=== PATIENT | female | born 1995 | race Caucasian/White ===

== ENCOUNTER 2023-09-06 05:53 | Inpatient (IN) ==
[2023-09-06] MEDS ORDERED: OXYTOCIN 30 UNITS/NSS 30 UNITS/500 ML BAG IV PRN ×2 (06:40→18:55)
[2023-09-06 07:15] LABS: Hemoglobin 13.1 g/dl (12.0-16.0); Mean Corpuscular Hemoglobin 28.2 pg (25.0-34.0); Mean Corpuscular Hgb Conc 33.6 g/dL (32.0-36.0); Mean Corpuscular Volume 83.9 fL (80.0-100.0); Mean Platelet Volume 11.8 fL (9.4-12.4); Platelet Count 218 K/uL (130-400); RDW Coefficient of Variation 13.1 % (11.5-14.5); RDW Standard Deviation 39.7 fL (36.4-46.3); Red Blood Count 4.65 M/uL (4.20-5.40); White Blood Count 12.38 K/ul (4.8-10.8)
[2023-09-06] MEDS: ONDANSETRON INJ 2 MG/ML 2 ML VIAL IV PRN (07:20)
--- NOTE | 2023-09-06 07:41 | History & Physical Report ---
Date of Service September 06, 2023 Assessment & Plan (1) Supervision of normal first : Plan: Admit to L&D. EFM/toco, labs, IV access. She'd prefer to labor as naturally as possible. Admission and Anticipated Discharge Date Admission Date: September 06, 2023 History of Present Illness Chief Complaint: labor Primary Care Provider: Mary Archuleta PA-C 27yo @ 40 2, presented in spontanous labor. No leaking. + movement. Hypothyroidism, took synthroid this morning. Had low-lying placenta, resolved. Allergies Allergy/AdvReac Type Severity Reaction Status Date / Time No Known Drug Allergies Allergy nkda Verified 09/06/23 06:11 Home Medications Medication Instructions Recorded Confirmed Type prenat.vits,frederic,bdc-gsfq-ejlgn 1 tab PO DAILY 07/15/22 09/06/23 History levothyroxine 88 mcg tablet 88 mcg PO DAILY #90 tabs 04/16/23 09/06/23 Rx Patient History Medical History Varicella vaccination History of chicken pox Surgical History S/P wisdom tooth extraction Family History Mother Thyroid disease Father Hypertension Denies family history of Ovarian cancer Breast cancer Colorectal cancer Social History Smoking Status: Never smoker Do You Dip or Chew Tobacco: No; Hx Alcohol Use: No Hx Substance Use: No Preferred Language: Armenian Survey Field Technician Required: No Beliefs That Will Affect Care: Adventist Adventist Beliefs: jainism marital status: marital status details: Tushar Escobar (29) [phone] Current Living Situation: Spouse Current Living Situation Comment: lives with spouse, dogs current occupational status: employed current occupation: [employer] Other Information That Helps Us Care for You: No Assistive Devices: None Review of Systems All systems reviewed & are unremarkable except as noted in HPI & below Physical Exam Physical Exam: 4cm per RN check on arrival. FHT Cat 1 Constitutional: WD/WN, vitals as above Respiratory: normal respiratory effort, lungs clear to auscultation no respiratory distress Cardiovascular: Rate/Rhythm: regular rate and regular rhythm Gastrointestinal (Abdomen): Inspection/Auscultation: abdomen normal to inspection Percussion/Palpation: abdomen soft; abdomen nontender Gravid. No s/s chorio or abruption. Skin: no rashes, warm and dry Psychiatric: A+Ox3, euthymic affect Results & Data Vital Signs (Past 12 Hours) Vital Signs Temp Pulse Resp BP 09/06/23 06:22 73 142/95 H 09/06/23 06:21 68 143/92 H 09/06/23 06:12 36.8 C 20 09/06/23 06:10 84 146/96 H Coding Level of Care Code None Diagnoses Supervision of normal first Z34.00
[2023-09-06] MEDS: LACTATED RINGER'S 1,000 ML IV PRN (08:42)
--- NOTE | 2023-09-06 08:45 | Anesthesiology Consultation ---
Date of Service September 06, 2023 Assessment & Plan Chart Review Chart Review: Acceptable Risk for Labor Epidural History Height/Weight Height: 5 ft 5 in Weight: 90.265 kg Allergies Allergy/AdvReac Type Severity Reaction Status Date / Time No Known Drug Allergies Allergy nkda Verified 09/06/23 06:11 Medications Home Medications Medication Instructions Recorded Confirmed Last Taken prenat.vits,freedric,kip-olii-xndec 1 tab PO DAILY 07/15/22 09/06/23 09/06/23 levothyroxine 88 mcg tablet 88 mcg PO DAILY #90 tabs 04/16/23 09/06/23 09/06/23 Active Medications Generic Name Dose Route Start Last Admin Trade Name Freq PRN Reason Stop Dose Admin Lactated Ringer's 1,000 mls @ 125 mls/hr 09/06/23 06:40 09/06/23 08:42 Lr IV 09/08/23 06:39 999 mls/hr .Q8H PRN Administration L&D Protocol Protocol Ondansetron HCl 4 mg 09/06/23 06:43 09/06/23 07:20 Ondansetron Inj 2 Mg/Ml 2 Ml Vial IV 10/06/23 06:42 4 mg Q6H PRN Administration Nausea And Vomiting Past Medical History Medical History Varicella vaccination History of chicken pox Past Family History Family History Mother Thyroid disease Father Hypertension Denies family history of Ovarian cancer Breast cancer Colorectal cancer Past Surgical History Surgical History S/P wisdom tooth extraction Social History Smoking Status: Never smoker Do You Dip or Chew Tobacco: No Hx Alcohol Use: No Hx Substance Use: No substance use type: does not use Physical Exam Vital Signs Last Vital Signs Temp 36.8 C 09/06/23 06:12 Pulse 73 09/06/23 06:22 Resp 20 09/06/23 06:12 BP 142/95 H 09/06/23 06:22 Testing Laboratory Results 09/06/23 06:57
[2023-09-06] MEDS: BUPIVACAINE 0.25% PF 30 ML VIAL ONE (09:10)
[2023-09-06] MEDS: fentaNYL citrate PF 100 MCG/2 ML VIAL ONE (09:10)
[2023-09-06] MEDS: LIDOCAINE 2%/EPINEPHRINE 1:200,000 20 ML PF ONE (09:12)
[2023-09-06] MEDS: fentANYL 2 MCG/ML BUPIVacaine 0.125%-NSS 100ML BAG ONE (09:13)
[2023-09-06] MEDS ORDERED: fentaNYL citrate PF 100 MCG/2 ML VIAL EPI PRN (09:20)
[2023-09-06] MEDS ORDERED: NALOXONE HCL 0.4 MG/1 ML VIAL/CARP IV PRN (09:20)
[2023-09-06] MEDS ORDERED: BUPIVACAINE 0.25% PF 30 ML VIAL EPI PRN (09:20)
[2023-09-06] MEDS ORDERED: SODIUM CHLORIDE 0.9% PF INJ 10 ML VIAL EPI PRN (09:20)
[2023-09-06] MEDS ORDERED: NALOXONE HCL 1 MG in SODIUM CHLORIDE 0.9% 1,000 ML IV PRN (09:20)
[2023-09-06] MEDS ORDERED: LIDOCAINE 2% MPF LOCAL 5 ML VIAL EPI PRN (09:20)
[2023-09-06] MEDS ORDERED: ONDANSETRON INJ 2 MG/ML 2 ML VIAL IV PRN (09:20)
[2023-09-06] MEDS ORDERED: ROPIVACAINE 0.5% PF 5 MG/ML 20 ML VIAL EPI PRN (09:20)
[2023-09-06] MEDS ORDERED: ePHEDrine sulfate 50 MG/ML AMP IV PRN (09:20)
--- NOTE | 2023-09-06 10:10 | Labor Progress Brief Note ---
Date of Service September 06, 2023 Subjective comfortable w/ epidural Assessment & Plan (1) : Plan: 27 yo G1 at 40 2/7 wga admitted in labor VSS Fetus cat 1 Labor - had discussed arom w/ pt and she was amenable, on exam no bag palpated. Pt thinks had a gush during epidural so suspect rom at that point. Progress noted, continue expectant management GBS neg epidural in place Admission and Anticipated Discharge Date Admission Date: September 06, 2023 Physical Exam Genitourinary: Manual OB Exam: + cervical dilation 5 cm, + cervical effacement 60% and + station -2 OB Exam Monitor Tracing: + external FHT monitor used, + external uterine monitor used (q4-5) and + category I planned arom, no bag noted Results & Data Vital Signs (Past 12 Hours) Vital Signs Temp Pulse Resp BP Pulse Ox 09/06/23 10:03 71 99 09/06/23 09:58 77 123/69 97 09/06/23 09:53 75 97 09/06/23 09:48 73 119/67 96 09/06/23 09:43 74 96 09/06/23 09:38 75 98 09/06/23 09:37 74 134/69 09/06/23 09:34 77 147/76 H 09/06/23 09:33 80 98 09/06/23 09:28 78 126/60 97 09/06/23 09:23 84 97 09/06/23 09:21 76 127/69 09/06/23 09:19 81 126/71 09/06/23 09:18 74 98 09/06/23 09:17 73 126/68 09/06/23 09:15 74 125/69 09/06/23 09:13 98 09/06/23 09:13 73 09/06/23 09:13 71 123/59 L 09/06/23 09:11 86 124/80 09/06/23 09:09 78 126/78 09/06/23 09:08 79 97 09/06/23 09:03 86 98 09/06/23 08:58 82 84 L 09/06/23 08:56 92 H 90 09/06/23 08:53 79 135/66 100 09/06/23 06:22 73 142/95 H 09/06/23 06:21 68 143/92 H 09/06/23 06:12 98.2 F 20 09/06/23 06:10 84 146/96 H Coding Level of Care Code None Diagnoses Z34.90
[2023-09-06] MEDS: SODIUM CHLORIDE 0.9% PF INJ 10 ML VIAL ONE (12:59)
[2023-09-06] MEDS: fentaNYL citrate PF 100 MCG/2 ML VIAL EPI STA (13:00)
[2023-09-06] MEDS: LIDOCAINE 2%/EPINEPHRINE 1:200,000 20 ML PF EPI STA (13:00)
[2023-09-06] MEDS: BUPIVACAINE 0.25% PF 30 ML VIAL EPI STA (13:00)
[2023-09-06] MEDS: SODIUM CHLORIDE 0.9% PF INJ 10 ML VIAL EPI STA (13:01)
[2023-09-06] MEDS: fentANYL 2 MCG/ML BUPIVacaine 0.125%-NSS 100ML BAG EPI PRN (16:24)
--- NOTE | 2023-09-06 17:23 | Labor Progress Brief Note ---
Date of Service September 06, 2023 Subjective Pushing with contractions. FHT 160s with early decels with pushing. [place] Q 2-3 station 2+ Continue pushing. Assessment & Plan Admission and Anticipated Discharge Date Admission Date: September 06, 2023 Results & Data Vital Signs (Past 12 Hours) Vital Signs Temp Pulse Resp BP Pulse Ox 09/06/23 17:18 93 H 100 09/06/23 17:13 94 H 97 09/06/23 17:08 108 H 100 09/06/23 17:03 22 09/06/23 17:03 36.9 C 99 H 22 97 09/06/23 16:58 93 H 100 09/06/23 16:53 100 09/06/23 16:53 92 H 09/06/23 16:53 105 H 127/88 09/06/23 16:49 104 H 86 L 09/06/23 16:48 100 H 100 09/06/23 16:43 98 H 100 09/06/23 16:38 102 H 118/84 99 09/06/23 16:33 84 99 09/06/23 16:28 94 H 100 09/06/23 16:23 91 H 121/84 100 09/06/23 16:18 100 H 100 09/06/23 16:14 103 H 85 L 09/06/23 16:13 96 H 98 09/06/23 16:09 94 H 129/77 09/06/23 16:08 98 H 100 09/06/23 16:03 95 H 99 09/06/23 15:58 106 H 100 09/06/23 15:53 95 H 100 09/06/23 15:48 99 H 100 09/06/23 15:47 100 H 147/104 H 09/06/23 15:43 99 09/06/23 15:43 104 H 09/06/23 15:43 96 H 133/93 09/06/23 15:39 104 H 87 L 09/06/23 15:38 95 09/06/23 15:38 104 H 09/06/23 15:38 90 138/91 09/06/23 15:33 92 H 136/89 100 09/06/23 15:28 92 H 148/87 H 100 09/06/23 15:23 95 H 100 09/06/23 15:21 89 144/103 H 09/06/23 15:18 100 09/06/23 15:18 96 H 09/06/23 15:18 87 139/105 H 09/06/23 15:14 92 H 132/100 09/06/23 15:13 94 H 100 09/06/23 15:08 95 H 100 09/06/23 15:03 94 H 100 09/06/23 14:58 106 H 100 09/06/23 14:53 103 H 100 09/06/23 14:48 102 H 100 09/06/23 14:44 86 127/83 09/06/23 14:43 93 H 100 09/06/23 14:38 88 100 09/06/23 14:33 83 100 09/06/23 14:29 81 128/69 09/06/23 14:28 91 H 99 09/06/23 14:23 80 99 09/06/23 14:18 78 98 09/06/23 14:14 72 127/71 09/06/23 14:13 73 100 09/06/23 14:08 77 100 09/06/23 14:03 87 100 09/06/23 14:00 16 09/06/23 14:00 37.0 C 16 09/06/23 13:58 96 H 99 09/06/23 13:53 84 97 09/06/23 13:48 87 97 09/06/23 13:43 82 126/75 97 09/06/23 13:38 85 97 09/06/23 13:33 82 96 09/06/23 13:28 109 H 125/74 98 09/06/23 13:23 81 96 09/06/23 13:18 92 H 97 09/06/23 13:13 99 H 122/75 98 09/06/23 13:08 80 97 09/06/23 13:03 74 98 09/06/23 12:58 75 128/79 98 09/06/23 12:53 79 99 09/06/23 12:48 73 100 09/06/23 12:45 77 134/76 09/06/23 12:43 81 99 09/06/23 12:38 81 100 09/06/23 12:33 74 98 09/06/23 12:30 66 119/62 09/06/23 12:28 74 97 09/06/23 12:23 72 98 03/25/24 12:18 74 97 24 12:14 64 122/69 24 12:13 65 98 24 12:08 75 99 24 12:03 65 99 24 12:00 65 119/68 24 11:58 66 97 24 11:53 69 98 24 11:48 72 98 09/06/23 11:45 36.9 C 65 16 118/69 24 11:43 74 98 24 11:38 79 98 24 11:33 77 97 24 11:29 68 120/77 09/06/23 11:28 87 97 09/06/23 11:23 88 96 24 11:18 90 96 24 11:14 83 120/76 09/06/23 11:13 87 96 09/06/23 11:08 87 97 09/06/23 11:03 79 97 09/06/23 11:01 78 94 24 10:59 75 127/80 24 10:58 75 97 24 10:53 71 99 24 10:52 80 94 24 10:48 78 96 24 10:45 72 125/77 24 10:43 84 97 24 10:38 81 96 24 10:33 81 97 09/06/23 10:28 97 09/06/23 10:28 84 24 10:28 82 125/78 24 10:23 75 97 09/05/24 10:19 76 132/84 24 10:18 72 97 24 10:13 82 97 24 10:08 92 H 127/82 98 24 10:03 71 99 24 09:58 77 123/69 97 24 09:53 75 97 24 09:48 73 119/67 96 24 09:43 74 96 24 09:38 75 98 24 09:37 74 134/69 24 09:34 77 147/76 H 09/06/23 09:33 80 98 09/06/23 09:28 78 126/60 97 09/06/23 09:23 84 97 09/06/23 09:21 76 127/69 09/06/23 09:19 81 126/71 09/06/23 09:18 74 98 09/06/23 09:17 73 126/68 09/06/23 09:15 74 125/69 09/06/23 09:13 98 09/06/23 09:13 73 09/06/23 09:13 71 123/59 L 09/06/23 09:11 86 124/80 09/06/23 09:09 78 126/78 09/06/23 09:08 79 97 09/06/23 09:03 86 98 09/06/23 08:58 82 84 L 09/06/23 08:56 92 H 90 09/06/23 08:53 79 135/66 100 09/06/23 06:22 73 142/95 H 09/06/23 06:21 68 143/92 H 09/06/23 06:12 36.8 C 20 09/06/23 06:10 84 146/96 H Coding Level of Care Code None
[2023-09-06] MEDS: LIDOCAINE 1% LOCAL 20 ML VIAL INFIL PRN (17:59)
[2023-09-06] MEDS: ePHEDrine sulfate 50 MG/ML AMP ONE (17:59)
--- NOTE | 2023-09-06 18:32 | Delivery Summary ---
Vaginal Delivery Summary Date of Service September 06, 2023 Vaginal Delivery Summary and 2nd Degree LAC Vaginal Delivery Summary: Pre-delivery diagnoses: 27yo @ 40 2/7, spontaneous labor, hypothyroidism Post-delivery diagnoses: same Procedure: spontaneous vaginal delivery, repair of 2nd degree perineal laceration and left periclitoral tear Surgeon: Anel Hernandez DO Complications: none Findings: Viable male . Apgars: 8/9 . Weight pending, please see nursery records Estimated blood loss: 300ml Description of delivery: The patient progressed to complete with epidural anesthesia. She then began to push. She spontaneously vaginally delivered a viable from the cephalic presentation. The head delivered in BAR position. The anterior shoulder delivered, followed by the posterior shoulder, followed by the body. The baby was placed on mother's abdomen and a spontaneous cry was heard. No nuchal. Delayed cord clamping was employed, and the cord was doubly clamped and cut. Cord blood was obtained. The placenta was delivered spontaneously intact with a 3-vessel cord. The uterus and vagina were swept of clots and debris. IV pitocin was given. The uterus became firm. The cervix, vagina, and perineum were inspected and a 2nd degree perineal laceration was noted, as well as bilateral periclitoral lacerations. The 2nd degree tear was repaired with 3-0 Vicryl. The right periclitoral tear was hemostatic, therefore not repaired. The left periclitoral tear was hemostatic, however went through the labia minora at the clitoral mcclain - 1% lidocaine used for local anesthetic - and anatomy was reapproximated with 3-0 Vicryl in interrupted sutures. Excellent hemostasis was observed. The mother and baby are recovering in stable and good condition in the room. Sponge, needle and instrument counts were correct x 2. Anel Hernandez DO [facility] Vaginal Delivery Charge Vaginal Delivery Codes: 28325 global code for the antepartum, delivery, and post- Delivery Type Details: and 2nd Degree LAC
[2023-09-06] MEDS ORDERED: oxyCODONE/ACETAMINOPHEN 5mg/325mg TAB PO PRN (18:55)
[2023-09-06] MEDS ORDERED: HYDROCORTISONE ACETATE 25 MG SUPP PR PRN (18:55)
[2023-09-06] MEDS ORDERED: bisacodyL 10 MG SUPP PR PRN (18:55)
[2023-09-06] MEDS ORDERED: BENZOCAINE 20% SPRY 85 APPLN/85 GM CAN EXT PRN (18:55)
--- NOTE | 2023-09-06 19:17 | Anesthesia Procedure Note ---
Date of Service September 06, 2023 Anesthesia Post Epidural Note Vital Signs Vital Signs: Temp Pulse Resp BP Pulse Ox 36.9 C 92 H 22 125/71 86 L 09/06/23 17:03 09/06/23 19:13 09/06/23 17:03 09/06/23 19:13 09/06/23 17:35 Notes Mental Status: alert / awake / arousable and participated in evaluation Nausea / Vomiting: adequately controlled Pain: adequately controlled Airway Patency, RR, SpO2: stable & adequate BP & HR: stable & adequate Hydration State: stable & adequate Neuraxial Anesthesia: was administered and sensory block is resolving Anesthetic Complications: no major complications apparent Epidural: Removed without complications and With tip intact
[2023-09-06] MEDS: IBUPROFEN 600 MG TAB PO PRN (20:05)
[2023-09-06] MEDS: ACETAMINOPHEN 325 MG TAB PO PRN (21:40)
[2023-09-07 06:41] LABS: Hematocrit (blood only) 34.2 % (37.0-47.0); Hemoglobin 11.3 g/dl (12.0-16.0)
[2023-09-07] MEDS: LEVOTHYROXINE SODIUM 88 MCG TABLET PO SCH (06:43)
--- NOTE | 2023-09-07 06:55 | Obstetrical Progress Note ---
Date of Service <Alexandra Mccormack MD - Last Filed: 09/07/23 06:55> September 07, 2023 Assessment & Plan <Alexandra Mccormack MD - Last Filed: 09/07/23 06:55> (1) Encounter for assessment: Plan Patient with the above mentioned history and findings was evaluated at bedside and found awake, alert, oriented in all spheres, afebrile, and in no acute distress. Vital signs showed no fever and blood pressures remained stable. Her blood type is B+ and today's hemoglobin is adequate at 11.3 g/dL. Serologies are negative for GBS and patient is Rubella immune. Overall, patient is doing well clinically and meeting the desired milestone for her course.Will continue routine pp care. If she remains stable, anticipate discharge tomorrow. All questions were answered. <Anel Hernandez DO - Last Filed: 09/07/23 08:52> (1) Encounter for assessment: Subjective <Alexandra Mccormack MD - Last Filed: 09/07/23 06:55> Sandra is a 27 y/o female who is now PPD # 1 following at 40 2/7 weeks. Reports feeling well overall this morning. Refers mild abdominal cramping & 2/10 pain well managed on analgesics. Voiding spontaneously. Tolerating meals overnight and able to ambulate some. Has not yet passed gas or had a bm. Some persistent lochia with some improvement this morning. . Constitutional: no fever, no chills or no sweats Denies shortness of breath or difficulty breathing Cardiovascular: no chest pain or no palpitations Breast: no breast pain Genitourinary (female): no dysuria Neurologic: no headache(s) Denies changes in vision Physical Exam <Alexandra Mccormack MD - Last Filed: 09/07/23 06:55> General: Alert. Oriented to person, time, and place. Afebrile. No acute distress. Cardiac: Regular rate and rhythm, no murmurs/rubs/gallops. Respiratory: Clear to auscultation bilaterally a/p, no wheezes/rales/rhonchi. No increased work of breathing. Symmetrical chest rise. No respiratory distress. Abdomen: Soft, nontender, nondistended. Bowel sounds present. Uterus: Uterine fundus firm, mildly tender, and palpable at umbilicus. Lower Extremities: No lower extremity edema or swelling. No deep calf pain. Jacklyn's negative bilaterally. Psych: Euthymic affect. Mood and affect congruence. Regular speech rate and content. Results & Data <Alexandra Mccormack MD - Last Filed: 09/07/23 06:55> Vital Signs (Past 12 Hours) Vital Signs Temp Pulse Pulse Resp BP BP O2 Del Method 09/07/23 04:30 36.5 C 56 L 14 124/78 Room Air 09/07/23 00:05 36.9 C 81 16 112/66 Room Air 09/06/23 21:47 36.8 C 88 14 122/73 Room Air 09/06/23 20:42 101 H 135/70 09/06/23 20:27 102 H 133/76 09/06/23 20:12 104 H 18 137/75 09/06/23 19:57 100 H 144/79 H 09/06/23 19:42 102 H 131/76 09/06/23 19:27 85 133/82 09/06/23 19:13 92 H 18 125/71 09/06/23 18:57 96 H 134/69 Supervising Physician <Anel Hernandez DO - Last Filed: 09/07/23 08:52> Co-Signing Physician Notes Resident Physician Supervision Note: I was present with Dr. Mccormack during the history and exam. I discussed the case with the resident and agree with the findings and plan as documented in the note. Any exceptions or clarifications are listed here: PPD#1 doing well, no concerns. Continue routine care. Documented By: Anel Hernandez DO
[2023-09-07] MEDS: PRENATAL VITAMIN 1 TAB PO SCH (09:10)
[2023-09-07] MEDS: DOCUSATE SODIUM 100 MG CAP PO SCH (09:11)
--- NOTE | 2023-09-07 14:02 | Labor Progress Brief Note ---
Date of Service September 07, 2023 Subjective Reason For Note: Routine Evaluation contraction pattern is irregular. cervix with minimal change -5+cm/100/-1. IUPC placed. no noteable amniotic fluid leaking even during placement of IUPC pitocin augmentation was begun but moderate variables occuring when contractions are every 2 minutes. pitocin currently at 5 milliunits. will change pitocin rate to increase by 1 milliunit instead of 2 to see if baby tolerates this better. I suspect a LGA fetus - I discussed labor management plan and when it might be necessary to proceed with LTCS instead of continuing labor process. For now, baby is tolerating current contraction pattern, but contractions are still not adequate. Assessment & Plan Admission and Anticipated Discharge Date Admission Date: September 06, 2023 Results & Data Vital Signs (Past 12 Hours) Vital Signs Temp Pulse Resp BP Pulse Ox O2 Del Method 09/07/23 11:20 98.2 F 66 16 126/85 97 Room Air 09/07/23 07:40 98.1 F 63 18 127/83 96 Room Air 09/07/23 04:30 97.7 F 56 L 14 124/78 Room Air Coding Level of Care Code None
[2023-09-07] MEDS: DIPHTHER/TETAN/PERTUS Vaccine (Tdap, Adol/Adult) 0.5mL IM ONE (21:27)
[2023-09-07] MEDS: bisacodyL 5 MG TABEC PO SCH (21:35)
--- NOTE | 2023-09-08 07:09 | Obstetrical Progress Note ---
Date of Service <Alexandra Mccormack MD - Last Filed: 09/08/23 07:09> September 08, 2023 Assessment & Plan <Alexandra Mccormack MD - Last Filed: 09/08/23 07:09> (1) Encounter for assessment: Plan Patient with the above mentioned history and findings was evaluated at bedside and found awake, alert, oriented in all spheres, afebrile, and in no acute distress. Vital signs showed no fever and blood pressures remained stable. Her blood type is B+ and today's hemoglobin is adequate at 11.3 g/dL. Serologies are negative for GBS and patient is Rubella immune. Overall, patient is doing well clinically and meeting the desired milestone for her course. Therefore, will discharge patient today. Patient was counselled on discharge instructions. She is to make an appointment with her OB for 6 weeks after discharge for follow up evaluation. All questions were answered. <Marianna Molina MD, FACOG - Last Filed: 09/08/23 07:32> (1) Encounter for assessment: Subjective <Alexandra Mccormack MD - Last Filed: 09/08/23 07:09> Sandra is a 27 y/o female who is now PPD # 2 following at 40 2/7 weeks. Reports feeling well overall this morning. Refers mild abdominal cramping & 2-3/10 pain well managed on analgesics. Voiding spontaneously. Tolerating meals overnight and able to ambulate some. Has not yet passed gas or had a bm. Some persistent lochia with some improvement this morning. . Constitutional: no fever, no chills or no sweats Denies shortness of breath or difficulty breathing Cardiovascular: no chest pain or no palpitations Breast: no breast pain Genitourinary (female): no dysuria Neurologic: no headache(s) Denies changes in vision Physical Exam <Alexandra Mccormack MD - Last Filed: 09/08/23 07:09> General: Alert. Oriented to person, time, and place. Afebrile. No acute distress. Cardiac: Regular rate and rhythm, no murmurs/rubs/gallops. Respiratory: Clear to auscultation bilaterally a/p, no wheezes/rales/rhonchi. No increased work of breathing. Symmetrical chest rise. No respiratory distress. Abdomen: Soft, nontender, nondistended. Bowel sounds present. Uterus: Uterine fundus firm, mildly tender, and palpable at umbilicus. Lower Extremities: No lower extremity edema or swelling. No deep calf pain. Jacklyn's negative bilaterally. Psych: Euthymic affect. Mood and affect congruence. Regular speech rate and content. Results & Data <Alexandra Mccormack MD - Last Filed: 09/08/23 07:09> Vital Signs (Past 12 Hours) Vital Signs Temp Pulse Resp BP BP Pulse Ox O2 Del Method 09/08/23 00:20 36.3 C L 54 L 18 121/80 97 Room Air 09/07/23 20:45 36.6 C 68 16 125/83 97 Room Air Supervising Physician <Marianna Molina MD, FACOG - Last Filed: 09/08/23 07:32> Co-Signing Physician Notes Resident Physician Supervision Note: I interviewed and examined the patient. Discussed with Dr. Mccormack and agree with findings and plan as documented in the note. Any exceptions or clarifications are listed here: [None] Documented By: Marianna Molina MD, FACOG
== END 2023-09-08 11:45 | disposition home or self-care (01) | DRG 807 ==
LOC: OPB 05:53 → 4S1 05:56 → 4E2 21:19